=== PATIENT | female | born 1945 | race Caucasian/White ===

== ENCOUNTER → 2019-09-22 | Outpatient (CLI) | payer MEDICARE, OTHER ==
[~2019-09-22] MED LIST: BUPR150T8 PO; CHOL100017 PO; HYDR50TA6 PO; LEVO137T3 PO; LEVO150T5 PO; METF500T16 PO
[2019-09-22 10:38] LABS: ALBUMIN 3.5 g/dL (3.4-5.0); CALCIUM 9.3 mg/dL (8.5-10.1); CREATININE 0.9 mg/dL (0.6-1.0)
--- NOTE | 2019-09-22 10:45 | EKG ---
[facility] [address] [place] [address] Test Date: 2019-09-22 Test Time: 10:44:05 Pat Name: NADINE LYNN Department: Room: Gender: F Extension Edger: JOLANTA : 1945 Requested By: SHARON HANSEN Order Number: [id number] Reading MD: Measurements Intervals [place] Rate: 71 P: 48 AR: 202 QRS: 26 QRSD: 134 T: -15 QT: 400 QTc: 435 Interpretive Statements SINUS RHYTHM RIGHT BUNDLE BRANCH BLOCK ABNORMAL ECG RI6.01 No previous ECG available for comparison
[2019-09-22 10:47] LABS: BASO # 0.1 x10^3/uL (0.0-0.2); BASO % 1 % (0-3); EOS # 0.4 x10^3/uL (0.0-0.7); EOS % 6 % (0-3); HEMATOCRIT 45.2 % (36.0-47.0); HEMOGLOBIN 14.7 g/dL (12.0-15.5); LYMPH # 1.5 x10^3/uL (1.0-4.8); LYMPH % 20 % (24-48); MEAN CORPUSCULAR HEMOGLOBIN 28 pg (25-35); MEAN CORPUSCULAR HGB CONC 33 g/dL (31-37); MEAN CORPUSCULAR VOLUME 87 fL (79-100); MONO # 0.7 x10^3/uL (0.0-1.1); MONO % 9 % (0-9); NEUT # 4.9 x10^3/uL (1.8-7.7); NEUT % 65 % (31-73); PLATELET COUNT 311 x10^3/uL (140-400); RED BLOOD COUNT 5.18 x10^6/uL (3.50-5.40); RED CELL DISTRIBUTION WIDTH 13.1 % (11.5-14.5); WHITE BLOOD COUNT 7.6 x10^3/uL (4.0-11.0)
[2019-09-22 10:51] LABS: PROTHROMBIN TIME PATIENT 13.2 SEC (11.7-14.0)
[2019-09-22 11:14] LABS: BILIRUBIN,URINE NEGATIVE (NEG); CLARITY,URINE CLEAR; COLOR,URINE YELLOW; NITRITE,URINE NEGATIVE (NEG); PROTEIN,URINE NEGATIVE (NEG-TRACE); UROBILINOGEN,URINE 0.2 mg/dL (0.2 mg/dL)
[2019-09-22 11:32] LABS: SQUAMOUS EPITHELIAL CELL,UR FEW /LPF
[2019-09-22 11:34] LABS: BACTERIA,URINE 0 /HPF (0-FEW); RBC,URINE 0 /HPF (0-2)
--- NOTE | 2019-09-22 16:32 | RAD ---
CHEST PA LATERAL Clinical indications: Preoperative chest x-ray for prior to right shoulder surgery in October 12, 2019. Patient is 74 years old. COMPARISON: None available. Findings: Diffuse bilateral interstitial lung disease is seen which may be acute or chronic in nature. No lung consolidation or lung mass or pleural effusion or pneumothorax is seen. There is mild to moderate elevation of the right hemidiaphragm. In the lateral view, this appears to be secondary to anterior focal eventration. Heart size is at the upper limits of normal. The mediastinum and pulmonary vasculature and both maria luisa are unremarkable. Lucency of the proximal right humeral head is seen. IMPRESSION: Diffuse bilateral interstitial lung disease which may be acute or chronic in nature. Heart size is at the upper limits of normal. Round lucency of the proximal right humerus with a sclerotic border. This may represent pseudotumor of the proximal right humerus related to positioning. This may be further evaluated with 3 view study of the right shoulder including axillary view. This was not seen on a previous study of the right shoulder dated June 27, 2018. Electronically signed by: Eros Herron MD (09/22/2019 4:30 PM) [facility]
[2019-09-22 23:07] LABS: HEMOGLOBIN A1C 6.2 % (4.8-5.6)
== END | disposition home or self-care (01) ==
LOC: SURGPAT 09:26
PROVIDERS: ATTEND Orthopaedic Surgery Sports Medicine
DX: Z01.818 Encounter for other preprocedural examination (principal); J84.9 Interstitial pulmonary disease, unspecified; I45.10 Unspecified right bundle-branch block; R94.31 Abnormal electrocardiogram [ECG] [EKG]
CPT/HCPCS: 36415; 71046; 80048; 81001; 82040; 82306; 83036; 85025; 85610; 85651; 85730; 87086; 87641; 93005

== ENCOUNTER → 2019-10-14 | Outpatient (CLI) | payer MEDICARE ==
[~2019-10-14] MED LIST changes: +REGADENOSON 0.4 MG/5 ML DISP.SYRIN. IV ONE
--- NOTE | 2019-10-14 11:58 | RAD ---
MR#: [id number] Date of Study: 10/14/2019 Ordering Physician: OSIEL WILLIAMSON, Referring Physician: HERMELINDA ESTRELLA Tech: RT Ros Crawford) (N) APPROVED REPORT Test Type: Pharmacological Stress Nurse/Tech: Dianne Rico RN Test Indications: pre-op clearance Cardiac History: HTN, DM, x-smoker Medications: See Electronic Medical Record Medical History: See Electronic Medical Record Resting ECG: SR BBB Resting Heart Rate: 67 bpm Resting Blood Pressure: 145/80mmHg Pretest Chest Pain: None Nurse/Tech Notes lungs CTA, S1S2 Consent: The procedure was explained to the patient in lay terms. Informed consent was witnessed. Cyril eout was entered into [place] [employer]. History and Stress Test performed by RT Ros Crawford) (N) Pharm. Details Pharmacologic stress testing was performed using 0.4mg per 5ml of regadenoson given intravenously ove r 7-10 seconds. Stress Symptoms No chest pain or symptoms. POST EXERCISE Reason for Termination: Infusion complete Max HR: 114 bpm Max Blood Pressure: 166/86mmHg Blood Pressure response to exercise: Normal blood pressure response during stress. Heart Rate response to exercise: normal response Chest Pain: No. Arrhythmia: No. ST Change: No. INTERPRETATION Stress EKG Conclusion: Baseline EKG showed sinus rhythm with RBBB. No ischemic changes at peak stres s. No arrhythmias. Imaging Protocol IMAGE PROTOCOL: Rest Tc-99m/stress Tc-99m 1 day Rest: Stress: Viability: Radiopharm.Tc99m QdrvdhvldCo84y Sestamibi Dose10.9mCi 32mCi Duration 10min. 10min. Img Date 10/14/2019 10/14/2019 Inj-Img [id number]. 60min. Rest Admin Site:Trimmer Machine Operator:MARLENE Mackenzie Stress Admin Site: Trimmer Machine Operator: RT Gato CrawfordR)(N) STRESS DATA End Diast. Vol.58.0mlLVEDV index BSA27.0ml End Syst. Vol.9.0mlLVESV index BSA4.0ml Myocardial Mass99.0gEject. Hvocdivd16.0% Stress Scores Regional WT0.00Summed WT5.00 Regional WM0.00Summed WM0.00 Study quality was good. Left Ventricular size was Normal at Rest and Stress. Lung uptake was . Left Ventricular ejection fraction is 84%. The rest and stress images show normal perfusion, normal contraction and thickening. LV Perf. Quant 17 Seg. SSS1.00 17 Seg. SRS0.00 17 Seg. SDS1.00 Stress Defect Extent (% LAD)0.00Rest Defect Extent (% LAD)0.00Rev. Defect Extent (% LAD)0.00 Stress Defect Extent (% LCX) 17.50Rest Defect Extent (% LCX)13.80Rev. Defect Extent (% LCX)0.00 Stress Defect Extent (% RCA)0.00Rest Defect Extent (% RCA)0.00Rev. Defect Extent (% RCA)0.00 Stress Defect Extent (% NOEMI)3.00Rest Defect Extent (% NOEMI)2.40Rev. Defect Extent (% NOEMI)0.00 Conclusion 1. Regadenoson cardioisotope stress test did not show any evidence of ischemia or infarct. 2. Normal left ventricular systolic function with ejection fraction calculated at 84%. 3. Low risk for cardiac events. Signed by : Dave Garcia, Electronically Approved : 10/14/2019 11:58:31
== END | disposition home or self-care (01) ==
LOC: NM 07:41
PROVIDERS: ATTEND Internal Medicine Cardiovascular Disease
DX: Z01.818 Encounter for other preprocedural examination (principal); I45.4 Nonspecific intraventricular block; I10 Essential (primary) hypertension; E11.9 Type 2 diabetes mellitus without complications; F17.200 Nicotine dependence, unspecified, uncomplicated
CPT/HCPCS: 78452; 93017; A9500; J2785

== ENCOUNTER → 2020-06-29 | Outpatient (CLI) | payer MEDICARE, OTHER ==
[~2020-06-29] MED LIST changes: +FLECTOR1 EACH TD; +LIDOCAINE 2%/EPI 1:100,000 20 ML VIAL. INJ ONE; +LORA10CA PO; -REGADENOSON 0.4 MG/5 ML DISP.SYRIN. IV ONE
--- NOTE | 2020-06-29 17:12 | RAD ---
Examination: 1. Right breast stereotactic core needle biopsy. 2. Right digital post procedure mammogram. INDICATION: 75-year-old woman recommended for stereotactic biopsy of calcifications in the posterior upper outer right breast. COMPARISON: Right mammogram of 06/10/2020. TECHNIQUE AND FINDINGS: Informed consent was obtained and an appropriate procedural pause observed. Using standard sterile technique, mammographic imaging guidance and local anesthesia with lidocaine to the skin surface and lidocaine with epinephrine deeper in the breast tissue, multiple 9-gauge vacuum-assisted core biopsy samples of the right breast targeting the calcifications in the posterior upper outer quadrant were obtained. Patient did experience a little bit of discomfort during the procedure which was rapidly addressed with additional local anesthetic. Specimen radiograph confirmed the presence of targeted calcifications in the specimen after which a biopsy marker was deployed and hemostasis ensured with direct breast compression for 10 minutes. Digital right post procedure mammogram showed satisfactory deployment of the biopsy marker adjacent to residual calcifications in the biopsy target. No postprocedure hematoma is apparent. The puncture site was dressed and postprocedure instructions were reviewed prior to patient discharge from imaging suite to follow up with her referring physician. There were no apparent complications. IMPRESSION: Successful right breast stereotactic biopsy of calcifications in the posterior upper-outer quadrant. Pathology results are pending. An addendum will be issued once pathology results become available. Electronically signed by: Shama Lee MD (06/29/2020 5:09 PM) [id number]
--- NOTE | 2020-07-01 18:08 | PATHOLOGY ---
[facility] Accession Number: [id number] . 01 Material submitted: . breast - RIGHT BREAST STEROTACTIC BIOPSY. Modifiers: right . 01 Clinical history: . RIGHT BREAST MICROCALCIFICATIONS . 02 Diagnosis: Breast tissue, right breast stereotactic needle biopsies: - Ancient fibroadenoma, with associated calcifications. . (JPM:mm; 07/01/2020) [facility] 07/01/2020 1612 Local . 02 Comment: There is no evidence of malignancy. . (JPM:mml; 07/01/2020) . 02 Electronically signed: . Sagar Villafana MD, Pathologist NPI- [id number] . 01 Gross description: . The specimen is received in formalin, labeled "Germania Lanier, right breast tissue" and consists of an orange cassette containing needle cores of yellow tissue measuring 1.8 x 1.3 x 0.6 cm in aggregate which are transferred to cassette A1. The specimen was obtained at 9:50 AM on 06/29/2020 and placed in formalin at 10:05 AM. The cold ischemic time is 15 minutes and the total formalin fixation time is greater than 6 hours less than 72 hours. (SDY; 06/30/2020) SYU/SYU 06/30/2020 0957 Local . 02 Pathologist provided ICD-10: D24.1 . 02 CPT . 260119 Specimen Comment: A courtesy copy of this report has been sent to [phone] Specimen Comment: [id number], Specimen Comment: Report sent to ,DR SMITH / DR LEI Performed at: [address], [place] [id number] MD Jesús Talamantes MD Phone: [phone] Performed at: [address] [id number] MD Sagar Villafana MD Phone: [phone]
== END | disposition home or self-care (01) ==
LOC: MAMMO 08:22
PROVIDERS: ATTEND Surgery
DX: R92.0 Mammographic microcalcification found on diagnostic imaging of breast (principal); D24.1 Benign neoplasm of right breast; Z79.899 Other long term (current) drug therapy; Z98.890 Other specified postprocedural states; Z72.89 Other problems related to lifestyle
CPT/HCPCS: 19081; 77065; 88305; C1713; J3490; 19085; 77022